=== PATIENT | female | born 2000 | race Caucasian/White ===

== ENCOUNTER 2023-04-12 00:25 | Emergency (ER) | payer OTHER ==
[2023-04-12 01:29] LABS: Bacteria/HPF None Seen HPF (None Seen); Bilirubin Negative (Negative); Blood, Urine Negative (Negative); CAUTI Indications for Culture Dysuria,urgency,freq; Clarity Clear (Clear); Glucose, Urine (Dipstick) Normal (Negative); Ketone, Urine Negative (Negative); Leukocyte 250 Leu/uL (Negative); Nitrite Negative (Negative); Protein, Urine (Dipstick) 10 mg/dL (Neg-Trace); Specific Gravity, Urine 1.028 (1.002-1.036); Urobilinogen Normal mg/dL (Less than 2); WBC/HPF 0-3 HPF (0-3)
[2023-04-12 01:36] LABS: Urine Culture Reflex No No
[2023-04-12 04:23] LABS: GC by PCR, Vaginal Swab Not Detected (NotDetected)
== END 2023-04-12 02:02 | disposition home or self-care (01) ==
LOC: ERS 00:25
DX: N93.8 Other specified abnormal uterine and vaginal bleeding (principal)
CPT/HCPCS: 81001; 87480; 87510; 87591; 87660; 99284

== ENCOUNTER 2023-04-17 07:59 | Emergency (ER) | payer OTHER ==
[2023-04-17] MEDS ORDERED: Dexamethasone 10 MG/ML VIAL ONE (08:25)
== END 2023-04-17 08:44 | disposition home or self-care (01) ==
LOC: ERS 07:59
DX: L50.9 Urticaria, unspecified (principal); Z87.891 Personal history of nicotine dependence
CPT/HCPCS: 96372; 99282; J1100

== ENCOUNTER 2023-11-06 20:25 | Emergency (ER) | payer SELFPAY ==
[2023-11-06] MEDS ORDERED: predniSONE 20 MG TAB ONE (21:48)
[2023-11-06] MEDS ORDERED: Ipratropium/Albuterol 3 ML NEB ONE ×2 (21:56→23:10)
== END 2023-11-06 23:50 | disposition home or self-care (01) ==
LOC: ERS 20:25
DX: J45.901 Unspecified asthma with (acute) exacerbation (principal); Z87.891 Personal history of nicotine dependence; Z79.899 Other long term (current) drug therapy
CPT/HCPCS: 71046; 93005; 94640; J7512; J7620

== ENCOUNTER 2024-06-03 15:09 | Emergency (ER) | payer BC ==
[2024-06-03 15:49] LABS: #Basophils 0.07 10x3/uL (0.0-0.2); %Basophils 0.6 % (0.0-1.0); %Eosinophils 1.1 % (0.0-10.0); %Lymphocytes 24.2 % (21.0-51.0); %Monocytes 5.6 % (0.0-10.0); Hemoglobin 16.3 g/dL (12.0-16.0); Mean Corpuscular HGB CONC 32.6 g/dL (32.0-36.0); Mean Corpuscular Hemoglobin 30.1 pg (27.0-31.0); Mean Corpuscular Volume 92.4 fL (78.0-98.0); Mean Platelet Volume 9.2 fL (7.4-10.4); Platelet Count 265 10x3/uL (130-400); RBC Distribution Width 13.4 % (11.5-14.5); Red Blood Cell (RBC) Count 5.41 mill/uL (4.20-5.40)
[2024-06-03 16:00] LABS: BHCG - Serum Negative (NEGATIVE); Pregs Control Background? CLEAR/WHITE (CLR/WHITE); Pregs Control Bar Appear? YES (CONTROL BAR)
[2024-06-03 16:05] LABS: Anion Gap 11 mmol/L (10-20); BUN (Urea Nitrogen) 9 mg/dL (7.0-18.7); Calc. Creatinine Clearance 0 mL/min (70-130); Calcium 7.8 mg/dL (7.8-10.44); Carbon Dioxide 22 mmol/L (22-29); Chloride 110 mmol/L (98-107); Estimated GFR 122; Glucose 95 mg/dL (70-105); Potassium 3.9 mmol/L (3.5-5.1); Sodium 139 mmol/L (136-145)
== END 2024-06-03 17:01 | disposition home or self-care (01) ==
LOC: ERS 15:09
DX: R55 Syncope and collapse (principal); J45.909 Unspecified asthma, uncomplicated; F17.210 Nicotine dependence, cigarettes, uncomplicated
CPT/HCPCS: 36415; 80048; 84703; 85025; 93005; 99284

== ENCOUNTER 2025-04-11 16:00 | Emergency (ER) | payer BC | END 2025-04-11 18:55 | disposition left against medical advice (07) | LOC: ERS 16:00 | DX: Z53.21 Procedure and treatment not carried out due to patient leaving prior to being seen by health care provider (principal) ==